=== PATIENT | male | born 1985 | race Caucasian/White ===

== ENCOUNTER 2020-07-24 17:29 | Emergency (ER) | payer OTHER, SELFPAY ==
[2020-07-24 17:30] VITALS: BP 157/98; PULSE 100; RESP 18; TEMP 36.2; O2SAT 97; BMI 56.9
--- NOTE | 2020-07-24 17:46 | RAD_ITS ---
STUDY: X-RAY CHEST REASON FOR EXAM: Male, 34 years old. Intermittent chest pain x few days. TECHNIQUE: Single AP portable view of the chest. COMPARISON: None. FINDINGS: The lungs are clear and expanded. There is no demonstrated pleural abnormality. Normal size heart. Normal mediastinum and nata. Normal visualized pulmonary arteries. Normal visualized aortic arch and descending thoracic aorta. Normal visualized thoracic spine. Normal visualized ribs, clavicles, and shoulders. There is no demonstrated abnormality of the visualized soft tissue structures of the upper abdomen. RAD/Chest 1 View (Portable) IMPRESSION: Normal x-ray examination of the chest. Electronically Signed: Rosita Gordillo MD at 18:58 EDT Tel , Service support ,
--- NOTE | 2020-07-24 17:46 | EKG12_ITS ---
Test Reason : Blood Pressure : / mmHG Vent. Rate : 090 BPM Atrial Rate : 090 BPM P-R Int : 190 ms QRS Dur : 100 ms QT Int : 358 ms P-R-T Axes : 046 043 031 degrees QTc Int : 437 ms Normal sinus rhythm Normal ECG Confirmed by KATHY STONE, CARLOS ([id number]), research editor ABIDA DOLL ([id number]) on 07/26/2020 1:02:53 PM Referred By: PHILIPPE Confirmed By:CARLOS CHAVEZ MD
--- NOTE | 2020-07-24 17:52 | ED.DCSUM_ITS ---
- ER Visit Summary Date of Service: 07/24/20 Chief Complaint: Chest pain History of Present Illness: The patient is a 34 M presenting with chest pain. Patient states that this has been ongoing for the past several days. He states he having intermittent episodes of sharp chest pain. He states this has act ually been ongoing for several months but worsened over the past week. He states the pain lasts seconds at a time. It improves with burping or stretching. He denies associated shortness of breath, nausea, vomiting. No fever or cough. No other complaints. Physical Examination: Vitals are stable. Patient is afebrile. Alert no acute distress. HEENT exam is unremarkable. Neck is supple. Lungs are clear and equal bilaterally. Heart is regular rate and rhythm. Abdomen is soft nontender nondistended. Extremities are unremarkable. Skin is warm and dry. No focal neurologic deficit. Remainder of exam is unremarkable. Emergency Department Course and Treatment: Patient was given aspirin on arrival. EKG is sinus rhythm rate of 90 with no acute ischemic changes. Chest x-ray shows no acute process. CBC, chemistries unremarkable. Troponin is negative. D-dimer negative. On reevaluation, patient is resting comfortably. He is given a prescription for Pepcid. Advised to follow-up with his primary care physician. Advised return to ED for worsening complaints. Disposition: Discharge home Impression: Atypical chest pain This note was generated with [employer] dictation software. It may contain incorrect words, spelling, and punctuation that were not noted in review of the chart prior to signing ED Disposition - Plan for ED Patient: Disposition: Home or Assisted Living Instructions: ED Chest Pain Atypical Unkn Cause Prescriptions: Famotidine [Pepcid] 20 mg PO BID #28 tab Prescription Printed Referrals: Magno Canales MD [Primary Care Provider] -
[2020-07-24 17:55] VITALS: PULSE 91; RESP 20
[2020-07-24 18:40] LABS: Anion Gap 3 (5-15); BUN 10 mg/dL (7-18); BUN/Creat Ratio 10.2 RATIO (10-20); Calcium,Total 9.1 mg/dL (8.5-10.1); Chloride 107 mmol/L (98-107); Creatinine, Serum 0.98 mg/dL (0.70-1.30); EST Glomerular Filtration Rate 94 mL/min (>60); Est Glom Filt Rate - Afr Amer 113 mL/min (>60); Estimated Creatinine Clearance 125.82 ml/min; Glucose 77 mg/dL (74-106); Potassium 3.7 mmol/L (3.5-5.1); Sodium Level 140 mmol/L (136-145)
[2020-07-24] MEDS: Aspirin 81 MG TAB.CHEW 324 MG PO (18:46)
[2020-07-24 18:49] LABS: Absolute Lymphocyte Count 1.85 X10^3/uL (0.83-4.51); Absolute Neutrophil Count 6.7 X10^3/uL (2.0-7.7); Basophil# 0.02 X10^3/uL; Basophil% 0.2 % (0-1); Eosinophil# 0.14 X10^3/uL; Eosinophils% 1.5 % (0-5); Hematocrit 44.1 % (40-54); Hemoglobin 14.5 g/dL (13.0-16.5); Lymphocyte # 1.85 X10^3/ul (4.0); Lymphocyte % 19.7 % (19-41); Mean Corp Hgb Conc 32.9 g/dL (32-36); Mean Corpuscular Hgb 27.8 pg (27.0-32.0); Mean Corpuscular Volume 84.6 fL (80-94); Mean Platelet Vol. 13.1 fl (6.2-12.0); Monocyte# 0.66 X10^3/uL; NRBC Flagged by Analyzer 0 % (0-5); Neutrophil # 6.65 X10^3/uL (2.7-7.7); Neutrophil % 71.1 % (47-70); Platelet Count 200 K/mm3 (150-450); RBC Distribution Width CV 12.8 % (11.6-14.6); RBC Distribution Width SD 39.5 fl (35.1-43.9); Red Blood Count 5.21 M/mm3 (4.6-6.2); White Blood Count 9.4 K/mm3 (4.4-11.0)
[2020-07-24 19:12] LABS: D-Dimer Quantitative (DVT/PE) 0.29 FEU/ug/m (0.27-0.49)
--- NOTE | 2020-07-24 19:52 | ED.DEP ---
ED Disposition - Plan for ED Patient: Instructions: ED Chest Pain Atypical Unkn Cause Prescriptions: Famotidine [Pepcid] 20 mg PO BID #28 tab Prescription Printed Referrals: Magno Canales MD [Primary Care Provider] -
[2020-07-24 20:02] VITALS: BP 143/85; PULSE 82
== END 2020-07-24 20:03 | disposition home or self-care (01) ==
LOC: ED 17:57
PROVIDERS: Emergency Provider Emergency Medicine; PCP Family Medicine
DX: R07.89 Other chest pain (principal)
CPT/HCPCS: 71045; 80048; 84484; 85025; 85379; 93005; 94640; 99285; A4216

== ENCOUNTER 2023-03-05 19:32 | Emergency (ER) | payer BC, SELFPAY ==
[2023-03-05 19:35] VITALS: BP 179/105; PULSE 93; RESP 16; TEMP 36.6; O2SAT 98; BMI 58.5
[2023-03-05 19:55] LABS: Absolute Lymphocyte Count 1.71 X10^3/uL (0.83-4.51); Absolute Neutrophil Count 6.1 X10^3/uL (2.0-7.7); Basophil# 0.04 X10^3/uL; Basophil% 0.5 % (0-1); Eosinophils% 3.5 % (0-5); Hematocrit 44.4 % (40-54); Hemoglobin 15.2 g/dL (13.0-16.5); Lymphocyte # 1.71 X10^3/ul (0.83-4.51); Lymphocyte % 19.8 % (19-41); Mean Corp Hgb Conc 34.2 g/dL (32-36); Mean Corpuscular Hgb 28.7 pg (27.0-32.0); Mean Corpuscular Volume 83.8 fL (80-94); Mean Platelet Vol. 12.6 fl (6.2-12.0); Monocyte# 0.48 X10^3/uL; Monocyte% 5.6 % (0-10); NRBC Flagged by Analyzer 0 % (0-5); Neutrophil # 6.06 X10^3/uL (2.7-7.7); Platelet Count 198 K/mm3 (150-450); RBC Distribution Width CV 13.4 % (11.6-14.6); RBC Distribution Width SD 41.1 fl (35.1-43.9); White Blood Count 8.6 K/mm3 (4.4-11.0)
[2023-03-05 20:13] LABS: ALB/GLOB Ratio 0.8 RATIO (0.9-2.4); AST(SGOT) 60 U/L (15-37); Alanine Aminotransfer ALT/SGPT 95 U/L (16-61); Albumin, Serum 3.8 g/dL (3.2-5.0); Alkaline Phosphatase 95 U/L (45-117); Anion Gap 4 (5-15); BUN 14 mg/dL (7-18); BUN/Creat Ratio 15.4 RATIO (10-20); Calcium,Total 9.2 mg/dL (8.5-10.1); Chloride 107 mmol/L (98-107); Creatinine, Serum 0.91 mg/dL (0.70-1.30); EST Glomerular Filtration Rate 101 mL/min (>60); Est Glom Filt Rate - Afr Amer 122 mL/min (>60); Estimated Creatinine Clearance 131.73 ml/min; Globulin 4.6 g/dL (2.2-4.2); Glucose 88 mg/dL (74-106); Potassium 4.4 mmol/L (3.5-5.1); Protein, Total 8.4 g/dL (6.4-8.2); Sodium Level 135 mmol/L (136-145)
--- NOTE | 2023-03-05 22:20 | CT_ITS ---
INDICATION: right flank pain A radiation dose optimization technique was used for this scan. COMPARISON: None. FINDINGS: Noncontrast serial CT axial images through the abdomen and pelvis with coronal and sagittal reformatted series. PANCREAS: No peripancreatic fat stranding. BOWEL/MESENTERY: No dilated bowel loops. No significant free fluid. No free air. GALLBLADDER: No pericholecystic fat stranding. LIVER/STOMACH: Fatty liver. Likely associated hepatomegaly measuring up to 21 cm in the craniocaudal dimension. URINARY COLLECTING SYSTEM/ KIDNEYS: No obstructing ureteral calculus. No significant renal parenchymal abnormality. APPENDIX: Normal caliber gas containing appendix. ABDOMINAL WALL: Small fat-containing umbilical hernia as well as bilateral inguinal hernias, without inflammatory fat stranding. LUNG BASES: Unremarkable. BONES: Unremarkable for age. CT/Abdomen/Pelvis without Cont IMPRESSION: No acute abdominal abnormality is identified, to include normal appendix and no evidence of obstructing ureteral calculus. Fatty liver with likely associated hepatomegaly. Electronically Signed: Harjinder Alvarez MD at 23:27 EDT ,
--- NOTE | 2023-03-05 22:36 | RAD_ITS ---
INDICATION: cough EXAMINATION/TECHNIQUE: X-RAY - XR Chest 2 Views COMPARISON: 07/24/2020 chest radiograph. Findings: Frontal and lateral views of the chest. LUNG PARENCHYMA: No acute focal airspace disease or mass lesion. PLEURA: No pleural effusion. No pneumothorax. HEART/GREAT VESSELS: Cardiomediastinal silhouette is unremarkable. BONES: Osseous structures are unremarkable for age. RAD/Chest PA and Lateral IMPRESSION: Chest with no acute disease. Electronically Signed: Harjinder Alvarez MD at 23:09 EDT ,
[2023-03-05 23:01] LABS: Bacteria 0 SEEN /hpf (None Seen); Mucous, Urine 0 SEEN /hpf (<or=2+); Red Blood Cells-Urine 0 SEEN /hpf (0-5); Squamous Epithelial Cells - UA 0 SEEN /hpf (0-5)
[2023-03-05 23:02] LABS: Color, Urine Yellow (Yellow); Glucose, Dipstick Normal (Normal); Ketone-Dipstick 5 mg/dl (Negative); Leukocyte Esterase-Dipstick 25 /ul (Negative); Nitrite-Dipstick Negative (Negative); Occult Blood-Urine Negative /ul (Negative); Specific Gravity, Urine 1.025 (1.002-1.030); Urine Bilirubin Dipstick Negative (Negative); Urine Clarity Clear (Clear); Urine Urobilinogen 1 mg/dl (Normal)
[2023-03-05 23:04] LABS: Protein-Dipstick 15 mg/dl (Negative)
[2023-03-05 23:12] LABS: White Blood Cells 0-5 SEEN /hpf (0-5)
--- NOTE | 2023-03-05 23:48 | ED.VIS.GI ---
HPI HPI - GI History of Present Illness Chief Complaint: Abd Pain Informant: patient Narrative Narrative: Patient is a 37-year-old male with the cough that developed a 1 and half week ago presenting with worsening right-sided abdominal pain. He states is worse with coughing. Initially went to urgent care and they told him to come to the emergency room. Patient notes he has had intermittent episodes of hematuria and has seen urology in the past however at that time he was not having hematuria so they just told him to come back if it happens again. He denies any painful or difficulty urinating. Denies any nausea or vomiting. Has been feeling slightly constipated as he normally has a daily bowel movements not had one in a couple days. Did not take anything for symptoms prior to arrival. No other complaints at this time. States he really only came in because of his 's insistence and the fact that he is going out of town soon. [facility] Medical History (Updated 03/05/23 @ 23:[address] Karolina River, DO) Cough Home Medications famotidine 20 mg tablet 20 mg PO BID #28 tabs 07/24/20 [Rx Last Taken Unknown] Allergy/AdvReac Type Severity Reaction Status Date / Time No Known Allergies Allergy Verified 07/24/20 17:31 Social History Smoking Status: Never smoker [facility] ED Constitutional Constitutional ED: Denies chills or fever(s) ENT ENT ED: Denies sore throat Cardiovascular Cardiovascular: Denies chest pain Respiratory/Chest Respiratory/Chest: Reports cough; Denies dyspnea Gastrointestinal Gastrointestinal: Reports abdominal pain and constipation; Denies diarrhea, nausea or vomiting Genitourinary Genitourinary ED: Reports hematuria; Denies dysuria Musculoskeletal Musculoskeletal: Denies arthralgias or myalgias Integumentary Denies rash Neurologic Neurologic: Denies headache(s) Psychiatric Psychiatric: Denies depression EXAM Physical Exam Const Vital Signs: 03/05/23 19:35 03/05/23 21:08 03/05/23 23:52 Temperature 97.9 F Temperature Source Temporal Pulse Rate 93 73 Respiratory Rate 16 18 Respiratory Effort Normal Non-Labored Respiratory Depth Normal Respiratory Pattern Normal Blood Pressure 179/105 H 152/88 H Blood Pressure Mean 129 Pulse Ox 98 95 Oxygen Delivery Method Room Air Positive well nourished, well developed and obese General Appearance ED: well developed and NAD Nutritional Appearance: obese HEENT Reports moist mucous membranes normocephalic and atraumatic Eyes PERRL and EOMs intact bilaterally General Eye ED: Negative for scleral icterus Neck supple Resp normal respiratory effort and clear to auscultation bilaterally Auscultation: Negative for wheezes or diminished lung sounds Cardio regular rate and regular rhythm GI non-tender and non-distended GI Narrative: No pain at McBurney's point. No mass or hernia appreciated. Auscultation: normoactive bowel sounds Palpation: soft; Negative for guarding or rigid Back/Spine no CVA tenderness Extremity full ROM Neuro moves all extremities Sensorium / Orientation: alert Motor Exam: Negative for general weakness Psych mental status grossly normal and thought process normal Mood & Affect: anxious Skin Skin Narrative: No rash specifically over the area of abdominal pain appreciated. General Skin Exam: Negative for jaundice Rashes: no rashes MDM MDM MDM Narrative Medical decision making narrative: Patient evaluated for right-sided abdominal/flank pain that seems to be exacerbated by coughing. He also reports that he has had intermittent hematuria is not having any currently. Differential includes abdominal wall hernia, abdominal wall strain, pneumonia and renal colic. He does not have any tenderness in the right lower quadrant have a low suspicion for appendicitis. Chest x-ray to read by myself as well as radiology does not show any acute process suggestive of pneumonia or other pathology. CBC largely normal as well as his CMP however he does have a mild elevation of his AST and ALT and urinalysis is negative for blood at this time. CT the abdomen pelvis shows no acute process but is consistent with fatty liver and likely associated hepatomegaly. Patient is counseled to take NSAIDs as needed for his pain. Counseled I suspect his pain is associated with coughing and abdominal wall strain. He is given return precautions. Encouraged follow-up with his primary care doctor. Counseled on weight loss. Discharged home in stable condition. Is eating and drinking while in the emergency room. Lab Data Labs: Laboratory Results - last 24 hr 03/05/23 03/05/23 03/05/23 19:44 19:44 23:00 WBC 8.6 RBC 5.30 Hgb 15.2 Hct 44.4 MCV 83.8 MCH 28.7 MCHC 34.2 RDW Std Deviation 41.1 RDW Coeff of Ashu 13.4 Plt Count 198 MPV 12.6 H Immature Gran % (Auto) 0.600 Neut % (Auto) 70.0 Lymph % (Auto) 19.8 [place]upe % (Auto) 5.6 Eos % (Auto) 3.5 Baso % (Auto) 0.5 Absolute Neuts (auto) 6.1 Absolute Lymphs (auto) 1.71 Nucleated RBC % 0 Sodium 135 L Potassium 4.4 Chloride 107 Carbon Dioxide 24.0 Anion Gap 4 L BUN 14 Creatinine 0.91 Estim Creat Clear Calc 131.73 Est GFR (MDRD) Af Amer 122 Est GFR (MDRD) Non-Af 101 BUN/Creatinine Ratio 15.4 Glucose 88 Calcium 9.2 Total Bilirubin 0.60 AST 60 H ALT 95 H Alkaline Phosphatase 95 Total Protein 8.4 H Albumin 3.8 Globulin 4.6 H Albumin/Globulin Ratio 0.8 L Urine Color Yellow Urine Clarity Clear Urine pH 5.0 Ur Specific Benicia 1.025 Urine Protein 15 H Urine Glucose (UA) Normal Urine Ketones 5 H Urine Occult Blood Negative Urine Nitrite Negative Urine Bilirubin Negative Urine Urobilinogen 1 H Ur Leukocyte Esterase 25 H Urine RBC 0 SEEN Urine WBC 0-5 SEEN Ur Squamous Epith Cells 0 SEEN Urine Bacteria 0 SEEN Urine Mucus 0 SEEN Radiography Diagnostic Testing: Clinical Impression(s) from Imaging Studies Abdomen/Pelvis CT 03/05/23 22:20 IMPRESSION: No acute abdominal abnormality is identified, to include normal appendix and no evidence of obstructing ureteral calculus. Fatty liver with likely associated hepatomegaly. Electronically Signed: Harjinder Alvarez MD at 23:27 EDT , Chest X-Ray 03/05/23 22:36 IMPRESSION: Chest with no acute disease. Electronically Signed: Harjinder Alvarez MD at 23:09 EDT , Discharge Plan Triage Chief Complaint: Abd Pain ED Provider: Karolina River Dx/Rx/DC Orders Clinical Impression: Abdominal wall pain, Cough Instructions: ED Abdominal Pain Unkn Cause Male... Prescriptions: No Action famotidine 20 MG tablet 20 mg PO BID Qty: 28 0RF Primary Care Provider: Magno Canales Referrals: Magno Canales MD [Primary Care Provider] - Activity Restrictions/Additional Instructions: Your CT did not show appendicitis or a kidney stone. Please follow-up with the urologist as you discussed for your intermittent episodes of hematuria. You do not have significant stool burden on your CT today. I would try just taking daily MiraLAX until you are having regular bowel movements again. You can get this [id number]. Take [id number] ibuprofen as needed for pain associated coughing. Disposition Disposition: Home, Self Care Discharge Date/Time: 03/05/23 23:53
[2023-03-05 23:52] VITALS: BP 152/88; PULSE 73; RESP 18; O2SAT 95
== END 2023-03-05 23:53 | disposition home or self-care (01) ==
PROVIDERS: Emergency Provider Emergency Medicine; PCP Family Medicine; Visit Provider Emergency Medicine
DX: R10.9 Unspecified abdominal pain (principal); R05.9 Cough, unspecified; E66.9 Obesity, unspecified
CPT/HCPCS: 71046; 74176; 80053; 81001; 85025; 99284